=== PATIENT | female | born 1960 | race Caucasian/White ===

== ENCOUNTER 2019-05-12 11:30 | Day surgery (SDC) | payer OTHER ==
[~2019-05-12] VITALS: Ht 157.5 cm; Wt 61.0 kg
[2019-05-12 12:00] VITALS: Ht 157.5 cm; Wt 61.0 kg
[2019-05-12 12:28] VITALS: BP 117/61; PULSE 56; RESP 18
[2019-05-12 14:11] VITALS: BP 109/62; RESP 20
[2019-05-12] MEDS ORDERED: MIDAZOLAM 1 MG/ML 2 ML INJ ONE ×2 (16:28→16:29)
[2019-05-12] MEDS ORDERED: FENTAnyl 50 MCG/ML VIAL ONE (16:29)
== END 2019-05-12 14:25 | disposition home or self-care (01) ==
LOC: GIL 11:30
PROVIDERS: ATTEND Internal Medicine Gastroenterology
DX: Z12.11 Encounter for screening for malignant neoplasm of colon (principal); K64.8 Other hemorrhoids; K57.30 Diverticulosis of large intestine without perforation or abscess without bleeding
CPT/HCPCS: 45378; J2250; J3010; Z7610